=== PATIENT | female | born 1980 | race Caucasian/White ===

== ENCOUNTER 2019-07-27 12:31 | Emergency (ER) | payer BC ==
[~2019-07-27] VITALS: Ht 162.6 cm; Wt 73.0 kg
[2019-07-27 12:47] VITALS: BP 122/75
[2019-07-27] MEDS ORDERED: IV NORMAL SALINE 1000ML BAG 1,000 ML IV SCH (12:59)
[2019-07-27] MEDS ORDERED: ONDANSETRON PF 4 MG/2 ML VIAL. IVP ONE (13:00)
--- NOTE | 2019-07-27 13:06 | PHYS DOC ---
General Adult EDM: Chief Complaint: ABDOMINAL PAIN HPI: HPI: Patient is a 38 year old female who presents with states about 4 AM Sunday morning she began having right lower quadrant abdominal pain that is a cramping and at times sharp. She states sometimes it will wrap around to her right back but it is mostly in the right lower abdominal quadrant. She states that she is been waking up and soaked in sweat. She states she has not vomited she is very nauseated having dry heaves. She states when she is up and moving the pain is worse. She states when she is just lying the pain is at a 5 out of 10 and tolerable. Patient has had a hysterectomy. Patient last had something to drink at 11 AM. She last had 2 bites of toast at 6 AM. She denies diarrhea, constipation, vomiting, shortness of breath, fever, chest pain, dizziness, syncope, headache, focal weakness, vision changes, numbness or tingling. (EVELIN BASILIO APRN) Review of Systems: Review of Systems: GI: abdominal pain, nausea, denies vomiting, bloody stools or diarrhea. [] (EVELIN BASILIO APRN) Heart Score: Risk Factors: Risk Factors: DM, Current or recent (<one month) smoker, HTN, HLP, family history of CAD, obesity. Risk Scores: Score 0 - 3: 2.5% MACE over next 6 weeks - Discharge Home Score 4 - 6: 20.3% MACE over next 6 weeks - Admit for Clinical Observation Score 7 - 10: 72.7% MACE over next 6 weeks - Early Invasive Strategies (EVELIN BASILIO APRN) Physical Exam: PE: Constitutional: Well developed, well nourished, no acute distress, non-toxic appearance. [] HENT: Normocephalic, atraumatic, bilateral external ears normal, oropharynx moist, no oral exudates, nose normal. [] Eyes: PERRLA, EOMI, conjunctiva normal, no discharge. [] Neck: Normal range of motion, no tenderness, supple, no stridor. [] Cardiovascular:Heart rate regular rhythm, no murmur [] Lungs & Thorax: Bilateral breath sounds clear to auscultation [] Abdomen: Bowel sounds normal, soft, right lower quadrant tenderness, no masses, no pulsatile masses. [] Skin: Warm, dry, no erythema, no rash. [] Back: No tenderness, no CVA tenderness. [] Extremities: No tenderness, no cyanosis, no clubbing, ROM intact, no edema. [] Neurologic: Alert and oriented X 3, normal motor function, normal sensory function, no focal deficits noted. [] Psychologic: Affect normal, judgement normal, mood normal. [] (EVELIN BASILIO APRN) EKG: EK and read by Dr Yen as NSR and no STEMI[] (EVELIN BASILIO APRN) Radiology/Procedures: Radiology/Procedures: [] Impression: [facility] [address] [place] [address] IMAGING REPORT Signed PATIENT: VU MACK ACCOUNT: [id number] : 1980 LOCATION: ER AGE: 38 SEX: F EXAM STATUS: REG ER ORD. PHYSICIAN: EVELIN BASILIO APRN REASON: RLQ abd pain, nausea PROCEDURE: CT ABD PELV W/ IV CONTRST ONLY CT ABD PELV W/ IV CONTRST ONLY History: Reason: RLQ abd pain, nausea / Spl. Instructions: IV OMNI 300 75 MLS / History: Technique: After the administration of intravenous contrast, CT imaging was performed of the abdomen and pelvis. Multiplanar images are reviewed. Exposure: One or more of the following individualized dose reduction techniques were utilized for this examination: 1. Automated exposure control 2. Adjustment of the mA and/or kV according to patient size 3. Use of iterative reconstruction technique. Comparison: None Findings: Lower chest: No consolidation or pleural effusion. Abdomen and pelvis: The liver, spleen, adrenal glands, pancreas and gallbladder are unremarkable. No biliary ductal dilatation. Patent portal and hepatic veins. Normal appearance of the kidneys. No hydronephrosis. Decompressed urinary bladder. Moderate stool-filled colon. Normal appendix. No evidence of bowel obstruction. Postoperative changes hysterectomy. No pathologic lymphadenopathy. Minimal pelvic free fluid. Bones: No pathologic osseous lesions. Impression: 1. No acute abdominal or pelvic pathology. Electronically signed by: Roddy Elias DO (07/27/2019 2:41 PM) [id number] DICTATED and SIGNED BY: RODDY ELIAS DO DATE: 07/27/19 1441 (EVELIN BASILIO APRN) Course & Med Decision Making: Course & Med Decision Making Pertinent Labs and Imaging studies reviewed. (See chart for details) Alert and oriented. Speaks in full clear sentences. Ambulatory with steady gait. Skin pink warm and dry. No extremity edema. Abdomen is soft. She states that when I push in the right lower quadrant that it is slightly tender and when I push to the mid low abdomen the pain will shoot over to the right side. Afebrile. Lungs are clear to auscultation all lobes. Bowel sounds are normal. [] (EVELIN BASILIO APRN) Dragon Disclaimer: Dragon Disclaimer: This electronic medical record was generated, in whole or in part, using a voice recognition dictation system. (EVELIN BASILIO APRN) Departure Departure Impression: Primary Impression: Abdominal pain Qualified Codes: R10.30 - Lower abdominal pain, unspecified Disposition: HOME, SELF-CARE Condition: STABLE Patient Instructions: Abdominal Pain (Nonspecific), Constipation, Adult Additional Instructions: Follow-up with primary care provider. Take medication as prescribed. Drink plenty of fluids. Scripts Ondansetron (ONDANSETRON ODT) 4 Mg Tab.rapdis 1 TAB PO PRN Q6-8HRS, #16 TAB Prov: EVELIN BASILIO APRN 07/27/19 Sennosides/Docusate Sodium (SENNA PLUS TABLET) 1 Each Tablet 2 TAB PO QHS for 14 Days, #28 TAB 0 Refills Prov: EVELIN BASILIO APRN 07/27/19 Attending Signature Attending Signature I have participated in the care of this patient and I have reviewed and agree with all pertinent clinical information above including history, exam, and recommendations. (JAMISON VAZ DO) EVELIN BASILIO APRN July 27, 2019 13:06 JAMISON VAZ DO July 27, 2019 15:32
[2019-07-27] MEDS ORDERED: fentaNYL PF VIAL 100 MCG/2 ML VIAL IVP ONE (13:15)
[2019-07-27 13:17] LABS: BILIRUBIN,URINE NEGATIVE (NEG); CLARITY,URINE CLEAR; COLOR,URINE YELLOW; NITRITE,URINE NEGATIVE (NEG); PROTEIN,URINE NEGATIVE (NEG-TRACE); UROBILINOGEN,URINE 0.2 mg/dL (0.2 mg/dL)
[2019-07-27 13:32] LABS: CALCIUM 8.4 mg/dL (8.5-10.1); GFR 62.4
[2019-07-27 13:34] LABS: BASO % 0 % (0-3); EOS # 0.1 x10^3/uL (0.0-0.7); EOS % 1 % (0-3); HEMATOCRIT 41.7 % (36.0-47.0); HEMOGLOBIN 14.5 g/dL (12.0-15.5); LYMPH # 2.1 x10^3/uL (1.0-4.8); LYMPH % 33 % (24-48); MEAN CORPUSCULAR HEMOGLOBIN 32 pg (25-35); MEAN CORPUSCULAR HGB CONC 35 g/dL (31-37); MEAN CORPUSCULAR VOLUME 91 fL (79-100); MONO # 0.4 x10^3/uL (0.0-1.1); MONO % 6 % (0-9); NEUT # 3.7 x10^3/uL (1.8-7.7); NEUT % 59 % (31-73); PLATELET COUNT 277 x10^3/uL (140-400); RED BLOOD COUNT 4.59 x10^6/uL (3.50-5.40); RED CELL DISTRIBUTION WIDTH 12.3 % (11.5-14.5); WHITE BLOOD COUNT 6.3 x10^3/uL (4.0-11.0)
[2019-07-27 13:38] LABS: ALBUMIN 3.6 g/dL (3.4-5.0); ALBUMIN/GLOBULIN RATIO 1.2 (1.0-1.7); TOTAL BILIRUBIN 0.9 mg/dL (0.2-1.0); TOTAL PROTEIN 6.7 g/dL (6.4-8.2)
[2019-07-27 13:42] LABS: RBC,URINE OCC /HPF (0-2); WBC,URINE 0 /HPF (0-4)
[2019-07-27 13:43] LABS: BACTERIA,URINE FEW /HPF (0-FEW); SQUAMOUS EPITHELIAL CELL,UR MOD /LPF
[2019-07-27] MEDS ORDERED: IOHEXOL 300 MG/ML 100ML VIAL. IV ONE (14:00)
[2019-07-27] MEDS ORDERED: CONTRAST GIVEN. MC PRN (14:00)
--- NOTE | 2019-07-27 14:44 | RAD ---
CT ABD PELV W/ IV CONTRST ONLY History: Reason: RLQ abd pain, nausea / Spl. Instructions: IV OMNI 300 75 MLS / History: Technique: After the administration of intravenous contrast, CT imaging was performed of the abdomen and pelvis. Multiplanar images are reviewed. Exposure: One or more of the following individualized dose reduction techniques were utilized for this examination: 1. Automated exposure control 2. Adjustment of the mA and/or kV according to patient size 3. Use of iterative reconstruction technique. Comparison: None Findings: Lower chest: No consolidation or pleural effusion. Abdomen and pelvis: The liver, spleen, adrenal glands, pancreas and gallbladder are unremarkable. No biliary ductal dilatation. Patent portal and hepatic veins. Normal appearance of the kidneys. No hydronephrosis. Decompressed urinary bladder. Moderate stool-filled colon. Normal appendix. No evidence of bowel obstruction. Postoperative changes hysterectomy. No pathologic lymphadenopathy. Minimal pelvic free fluid. Bones: No pathologic osseous lesions. Impression: 1. No acute abdominal or pelvic pathology. Electronically signed by: Roddy Elias DO (07/27/2019 2:41 PM) [id number]
[2019-07-27] MEDS ORDERED: ONDA4TAB12 PO (14:52)
[2019-07-27] MEDS ORDERED: SENN1TAB62 PO (14:52)
--- NOTE | 2019-07-28 07:22 | EKG ---
[facility] [address] [place] [address] Test Date: 2019-07-27 Test Time: 13:28:41 Pat Name: VU MACK Department: Room: Gender: F Design Engineering Intern: : 1980 Requested By: EVELIN BASILIO Order Number: [id number] Reading MD: Rip Cowan MD Measurements Intervals [place] Rate: 70 P: 33 W[place]: 134 QRS: 38 QRSD: 78 T: 27 QT: 390 QTc: 424 Interpretive Statements SINUS RHYTHM Electronically Signed On 07-28-2019 12:23:51 CDT by Rip Cowan MD
== END 2019-07-27 15:16 | disposition home or self-care (01) ==
LOC: ER 12:31
DX: R10.31 Right lower quadrant pain (principal); R11.0 Nausea
CPT/HCPCS: 36415; 74177; 80053; 81001; 81025; 83690; 84484; 85025; 85610; 93005; 96374; 96375; 99285; J2405; J3010; J7030; Q9967